=== PATIENT | female | born 2000 | race Hispanic/Latino ===

== ENCOUNTER 2020-09-10 00:48 | Observation (INO) | payer MEDICAID, OTHER ==
[2020-09-10 00:58] VITALS: BMI 31.1
[2020-09-10] MEDS ORDERED: hydrALAZINE 20 MG/ML VIAL SLOW IVP PRN (01:24)
[2020-09-10] MEDS ORDERED: Promethazine HCl 25 MG/ML VIAL IM PRN (01:24)
[2020-09-10] MEDS ORDERED: Acetaminophen 500 MG TAB PO PRN (01:24)
[2020-09-10] MEDS ORDERED: CEFAZOLIN 2 GM in Premix Bag 1 BAG IVPB SCH (01:45)
[2020-09-10] MEDS: Dextrose 5%-Lactated Ringers 1,000 ML IV SCH ×3 (02:08→19:49)
[2020-09-10 06:32] LABS: #Basophils 0.1 10x3/uL (0.0-0.2); #Monocytes 1.3 10x3/uL (0.0-1.1); #Neutrophils 15.2 10x3/uL (1.5-8.4); %Basophils 0.3 % (0.0-2.0); %Eosinophils 0.1 % (0.0-6.0); %Monocytes 6.7 % (0.0-10.0); %Neutrophils 80.3 % (40.0-75.0); Hemoglobin 11.9 g/dL (12.0-15.5); Mean Corpuscular HGB CONC 34.3 g/dL (32.0-36.0); Mean Corpuscular Hemoglobin 28.7 pg (27.0-33.0); Mean Corpuscular Volume 83.8 fl (81.6-98.3); Mean Platelet Volume 9.2 fl (7.4-10.4); Platelet Count 337 10x3/uL (150-450); RBC Distribution Width 12.9 % (11.5-14.5); Red Blood Cell (RBC) Count 4.14 10x6/uL (3.90-5.03); White Blood Cell (WBC) Count 18.9 10x3/uL (3.5-10.5)
[2020-09-10 06:35] LABS: ALT (SGPT) 20 U/L (8-55); AST (SGOT) 18 U/L (5-34); Albumin 4.3 g/dL (3.5-5.0); Alkaline Phosphatase 100 U/L (40-100); Anion Gap 12 mmol/L (10-20); BUN (Urea Nitrogen) 6 mg/dL (7.0-18.7); Bilirubin, Total 0.7 mg/dL (0.2-1.2); Calc. Creatinine Clearance 171 mL/min (70-130); Calcium 8.6 mg/dL (7.8-10.44); Carbon Dioxide 22 mmol/L (22-29); Chloride 107 mmol/L (98-107); Globulin 2.6 g/dL (2.4-3.5); Glucose 123 mg/dL (70-105); Potassium 3.4 mmol/L (3.5-5.1); Protein, Total 6.9 g/dL (6.0-8.3); Sodium 138 mmol/L (136-145)
[2020-09-10] MEDS: CEFAZOLIN 1 GM in Sodium Chloride 0.9% 100 ML IVPB SCH ×2 (08:43→15:41)
[2020-09-10] MEDS: Ondansetron PF 4 MG/2 ML Vial IVP PRN ×2 (13:12→23:09)
[2020-09-10 16:56] LABS: SARS-CoV-2 PCR by NAA Not Detected (NotDetected)
[2020-09-10] MEDS ORDERED: pyridOXINE 50 MG (B6) TAB PO SCH (17:30)
[2020-09-10] MEDS ORDERED: Metoclopramide HCl 10 MG TAB PO SCH (17:30)
[2020-09-10] MEDS ORDERED: Doxylamine 25 MG TAB PO SCH (17:30)
[2020-09-10] MEDS: Metoclopramide HCl 10 MG/2 ML VIAL IVP SCH (19:50)
[2020-09-10] MEDS: Doxylamine 25 MG TAB PO SCH (20:58)
[2020-09-10] MEDS: pyridOXINE 50 MG (B6) TAB PO SCH (21:00)
[2020-09-11] MEDS: CEFAZOLIN 1 GM in Sodium Chloride 0.9% 100 ML IVPB SCH ×3 (00:16→17:06)
[2020-09-11] MEDS: Metoclopramide HCl 10 MG/2 ML VIAL IVP SCH ×4 (02:03→20:03)
[2020-09-11] MEDS: Dextrose 5%-Lactated Ringers 1,000 ML IV SCH ×3 (04:16→13:49)
[2020-09-11] MEDS: Doxylamine 25 MG TAB PO SCH ×2 (08:16→21:09)
[2020-09-11] MEDS: pyridOXINE 50 MG (B6) TAB PO SCH ×3 (08:16→21:09)
[2020-09-11 19:37] VITALS: BP 99/58; TEMP 99.2
== END 2020-09-11 21:25 | disposition home or self-care (01) ==
LOC: CSHPP 00:48
PROVIDERS: ADMIT Obstetrics & Gynecology; ATTEND Obstetrics & Gynecology
DX: O21.1 Hyperemesis gravidarum with metabolic disturbance (principal); O23.41 Unspecified infection of urinary tract in pregnancy, first trimester; Z3A.01 Less than 8 weeks gestation of pregnancy; Z20.822 Contact with and (suspected) exposure to COVID-19
CPT/HCPCS: 36415; 80053; 85025; 87635; 96361; 96365; 96366; 96375; 96376; G0378; J0690; J2405; J2765; J3490; U0003; U0005

== ENCOUNTER 2020-09-21 18:24 | Observation (INO) | payer MEDICAID, OTHER, SELFPAY ==
[2020-09-21] MEDS ORDERED: Ondansetron PF 4 MG/2 ML Vial ONE (19:32)
[2020-09-21] MEDS ORDERED: Promethazine HCl 25 MG/ML VIAL ONE (19:33)
[2020-09-21 19:39] LABS: #Basophils 0.1 10x3/uL (0.0-0.2); #Monocytes 1.8 10x3/uL (0.0-1.1); #Neutrophils 18.6 10x3/uL (1.5-8.4); %Basophils 0.3 % (0.0-2.0); %Lymphocytes 8.9 % (18.0-47.0); %Monocytes 8.1 % (0.0-10.0); %Neutrophils 82.1 % (40.0-75.0); Hemoglobin 15.3 g/dL (12.0-15.5); Mean Corpuscular HGB CONC 36.2 g/dL (32.0-36.0); Mean Corpuscular Hemoglobin 28.5 pg (27.0-33.0); Mean Corpuscular Volume 78.8 fl (81.6-98.3); Mean Platelet Volume 9.2 fl (7.4-10.4); Platelet Count 440 10x3/uL (150-450); RBC Distribution Width 12.2 % (11.5-14.5); Red Blood Cell (RBC) Count 5.37 10x6/uL (3.90-5.03); White Blood Cell (WBC) Count 22.6 10x3/uL (3.5-10.5)
[2020-09-21 19:57] LABS: ALT (SGPT) 172 U/L (8-55); AST (SGOT) 80 U/L (5-34); Albumin 5.4 g/dL (3.5-5.0); Alkaline Phosphatase 135 U/L (40-100); Anion Gap 20 mmol/L (10-20); BUN (Urea Nitrogen) 8 mg/dL (7.0-18.7); Bilirubin, Total 2.5 mg/dL (0.2-1.2); Calc. Creatinine Clearance 0 mL/min (70-130); Calcium 10.3 mg/dL (7.8-10.44); Carbon Dioxide 27 mmol/L (22-29); Chloride 85 mmol/L (98-107); Globulin 3.5 g/dL (2.4-3.5); Glucose 90 mg/dL (70-105); Protein, Total 8.9 g/dL (6.0-8.3); Sodium 130 mmol/L (136-145)
[2020-09-21 20:09] LABS: Potassium 2.4 mmol/L (3.5-5.1)
[2020-09-21] MEDS ORDERED: Dexamethasone 10 MG/ML VIAL ONE (20:35)
[2020-09-21] MEDS ORDERED: Potassium Chloride 20 MEQ TAB ONE (20:35)
[2020-09-21 20:39] LABS: Bilirubin Neg (Negative); Blood, Urine 50 (Negative); Clarity Clear (Clear); Glucose, Urine (Dipstick) Normal (Negative); Ketone, Urine 150 mg/dL (Negative); Leukocyte Negative (Negative); Nitrite Negative (Negative); Protein, Urine (Dipstick) 30 mg/dl (Neg-Trace)
[2020-09-21 20:48] LABS: Amphetamine Not Detected (NotDetected); Barbiturates Screen Not Detected (NotDetected); Benzodiazepine Screen Not Detected (NotDetected); Cocaine Metabolite Screen Not Detected (NotDetected); Methadone Not Detected (NotDetected); Methamphetamine Not Detected (NotDetected); Opiate Screen Not Detected (NotDetected); Oxycodone Screen Not Detected (NotDetected); Phencyclidine (PCP) Not Detected (NotDetected); THC/Cannabinoid Screen Not Detected (NotDetected); Tricyclic Screen Not Detected (NotDetected)
[2020-09-21 20:53] LABS: RBC/HPF 0-3 HPF (0-3)
[2020-09-21 20:54] LABS: Bacteria/HPF 3+ HPF (None Seen); Mucous/LPF 4+ LPF (<2+)
[2020-09-21] MEDS ORDERED: Mirtazapine 15 MG TAB PO SCH (21:00)
[2020-09-21] MEDS ORDERED: Ondansetron PF 4 MG/2 ML Vial IVP PRN (21:37)
[2020-09-21] MEDS ORDERED: Sodium Chloride 0.9% 1,000 ML IV SCH (21:37)
[2020-09-21] MEDS ORDERED: NS 0.9% w/ 20 MEQ KCL 1,000 ML IV SCH (23:00)
[2020-09-21] MEDS: Metoclopramide HCl 10 MG/2 ML VIAL IVP SCH (23:09)
[2020-09-22 06:29] LABS: Anion Gap 12 mmol/L (10-20); Globulin 2.7 g/dL (2.4-3.5)
[2020-09-22] MEDS: Metoclopramide HCl 10 MG/2 ML VIAL IVP SCH (06:31)
[2020-09-22 06:57] LABS: ALT (SGPT) 123 U/L (8-55); AST (SGOT) 49 U/L (5-34); Albumin 4.1 g/dL (3.5-5.0); Alkaline Phosphatase 96 U/L (40-100); BUN (Urea Nitrogen) 5 mg/dL (7.0-18.7); Bilirubin, Total 1.8 mg/dL (0.2-1.2); Calc. Creatinine Clearance 152 mL/min (70-130); Calcium 8.6 mg/dL (7.8-10.44); Carbon Dioxide 27 mmol/L (22-29); Chloride 100 mmol/L (98-107); Glucose 105 mg/dL (70-105); Potassium 3.5 mmol/L (3.5-5.1); Protein, Total 6.8 g/dL (6.0-8.3); Sodium 135 mmol/L (136-145)
[2020-09-22] MEDS ORDERED: Famotidine/PF 20 mg/2ml Vial SLOW IVP SCH (09:00)
[2020-09-22 09:21] VITALS: BMI 25.8
[2020-09-22 11:14] VITALS: BP 117/73; TEMP 98.9
[2020-09-22 13:36] LABS: SARS-CoV-2 PCR by NAA Not Detected (NotDetected)
== END 2020-09-22 13:25 | disposition home or self-care (01) ==
LOC: CSHERS 18:24 → CSHPP 21:22 → OBSVTOIN 21:22 → INTOOBSV 21:22
PROVIDERS: ADMIT Obstetrics & Gynecology; ATTEND Obstetrics & Gynecology
DX: O21.1 Hyperemesis gravidarum with metabolic disturbance (principal); O23.41 Unspecified infection of urinary tract in pregnancy, first trimester; Z3A.08 8 weeks gestation of pregnancy; Z79.2 Long term (current) use of antibiotics; Z79.899 Other long term (current) drug therapy; Z20.822 Contact with and (suspected) exposure to COVID-19
CPT/HCPCS: 36415; 80053; 80306; 81003; 81015; 85025; 87635; 96374; 96375; 96376; G0378; J1100; J2405; J2550; J2765; J3480; S0028; U0003; U0005

== ENCOUNTER 2020-10-12 21:26 | Observation (INO) | payer MEDICAID, OTHER ==
[2020-10-12 22:18] LABS: #Basophils 0.1 10x3/uL (0.0-0.2); #Monocytes 0.7 10x3/uL (0.0-1.1); #Neutrophils 12.1 10x3/uL (1.5-8.4); %Basophils 0.4 % (0.0-2.0); %Eosinophils 0.1 % (0.0-6.0); %Monocytes 4.7 % (0.0-10.0); %Neutrophils 86.3 % (40.0-75.0); Hemoglobin 13.7 g/dL (12.0-15.5); Mean Corpuscular HGB CONC 36.2 g/dL (32.0-36.0); Mean Corpuscular Hemoglobin 29.1 pg (27.0-33.0); Mean Corpuscular Volume 80.3 fl (81.6-98.3); Mean Platelet Volume 9.1 fl (7.4-10.4); Platelet Count 385 10x3/uL (150-450); RBC Distribution Width 13.5 % (11.5-14.5); Red Blood Cell (RBC) Count 4.71 10x6/uL (3.90-5.03)
[2020-10-12] MEDS ORDERED: Ondansetron PF 4 MG/2 ML Vial ONE (22:24)
[2020-10-12 22:25] LABS: BHCG - Serum POSITIVE (NEGATIVE); Pregs Control Background? CLEAR/WHITE (CLR/WHITE); Pregs Control Bar Appear? YES (CONTROL BAR)
[2020-10-12 22:27] LABS: Bilirubin 1+ (Negative); Blood, Urine 25 (Negative); Glucose, Urine (Dipstick) Normal (Negative); Ketone, Urine 150 mg/dL (Negative); Leukocyte 25 (Negative); Nitrite Negative (Negative); Protein, Urine (Dipstick) 30 mg/dl (Neg-Trace)
[2020-10-12 22:29] LABS: Clarity Clear (Clear)
[2020-10-12 22:34] LABS: ALT (SGPT) 30 U/L (8-55); AST (SGOT) 26 U/L (5-34); Alkaline Phosphatase 108 U/L (40-100); Anion Gap 20 mmol/L (10-20); BUN (Urea Nitrogen) 6 mg/dL (7.0-18.7); Bilirubin, Total 1.4 mg/dL (0.2-1.2); Calc. Creatinine Clearance 0 mL/min (70-130); Calcium 10.3 mg/dL (7.8-10.44); Carbon Dioxide 16 mmol/L (22-29); Chloride 102 mmol/L (98-107); Globulin 3.4 g/dL (2.4-3.5); Glucose 95 mg/dL (70-105); Protein, Total 8.4 g/dL (6.0-8.3); Sodium 135 mmol/L (136-145)
[2020-10-12 22:39] LABS: Bacteria/HPF 3+ HPF (None Seen); Mucous/LPF 3+ LPF (<2+); RBC/HPF 0-3 HPF (0-3)
[2020-10-12] MEDS ORDERED: Metoclopramide HCl 10 MG/2 ML VIAL ONE (23:17)
[2020-10-12] MEDS ORDERED: diphenhydrAMINE 50 MG/ML VIAL ONE (23:17)
[2020-10-13] MEDS ORDERED: D5 0.9% NS w/ 20 mEq KCl 1,000 ML IV ONE (00:26)
[2020-10-13] MEDS ORDERED: Acetaminophen 325 MG TAB PO PRN (01:45)
[2020-10-13] MEDS ORDERED: Ondansetron PF 4 MG/2 ML Vial IVP PRN (01:45)
[2020-10-13] MEDS ORDERED: Ondansetron ODT 4 MG TAB SL PRN (01:45)
[2020-10-13] MEDS ORDERED: Sodium Chloride 0.9% 1,000 ML IV SCH (01:45)
[2020-10-13] MEDS ORDERED: Acetaminophen 500 MG TAB PO PRN (02:53)
[2020-10-13] MEDS ORDERED: Promethazine HCl 25 MG/ML VIAL IM PRN ×2 (02:53→03:13)
[2020-10-13] MEDS ORDERED: Zolpidem Tartrate 5 MG TAB PO PRN (02:53)
[2020-10-13] MEDS ORDERED: hydrALAZINE 20 MG/ML VIAL SLOW IVP PRN (02:53)
[2020-10-13] MEDS ORDERED: Metoclopramide HCl 10 MG/2 ML VIAL IVP PRN (02:56)
[2020-10-13] MEDS: diphenhydrAMINE 25 MG in Sodium Chloride 0.9% 50 ML IVPB SCH ×3 (03:51→15:11)
[2020-10-13] MEDS: Metoclopramide HCl 10 MG/2 ML VIAL IVP SCH ×4 (03:53→20:34)
[2020-10-13] MEDS: CEFAZOLIN 1 GM in Sodium Chloride 0.9% 100 ML IVPB SCH ×3 (04:46→20:33)
[2020-10-13] MEDS: D5 1/2 NS w/20 mEq KCL 1,000 ML IV SCH ×3 (07:26→20:33)
[2020-10-13 11:36] VITALS: BMI 28.3
[2020-10-13 14:23] LABS: SARS-CoV-2 PCR by NAA Not Detected (NotDetected)
[2020-10-14] MEDS: diphenhydrAMINE 50 MG/ML VIAL IVP SCH ×3 (00:23→15:07)
[2020-10-14] MEDS: CEFAZOLIN 1 GM in Sodium Chloride 0.9% 100 ML IVPB SCH ×3 (03:48→20:27)
[2020-10-14] MEDS: Metoclopramide HCl 10 MG/2 ML VIAL IVP SCH ×2 (03:48→08:16)
[2020-10-14] MEDS: D5 1/2 NS w/20 mEq KCL 1,000 ML IV SCH ×3 (03:56→20:42)
[2020-10-14] MEDS: diphenhydrAMINE 25 MG in Sodium Chloride 0.9% 50 ML IVPB SCH (05:52)
[2020-10-14 08:21] LABS: Anion Gap 12 mmol/L (10-20)
[2020-10-14 08:27] LABS: BUN (Urea Nitrogen) Less than 4 mg/dL (7.0-18.7); Calc. Creatinine Clearance 179 mL/min (70-130); Calcium 8.3 mg/dL (7.8-10.44); Carbon Dioxide 19 mmol/L (22-29); Chloride 108 mmol/L (98-107); Glucose 96 mg/dL (70-105); Potassium 3.5 mmol/L (3.5-5.1); Sodium 135 mmol/L (136-145)
[2020-10-14] MEDS: pyridOXINE 50 MG (B6) TAB PO SCH ×3 (15:13→21:16)
[2020-10-14] MEDS: Doxylamine 25 MG TAB PO SCH ×3 (15:14→21:15)
[2020-10-14] MEDS: Metoclopramide HCl 10 MG TAB PO SCH ×2 (17:01→21:15)
[2020-10-14] MEDS ORDERED: Metoclopramide HCl 10 MG/2 ML VIAL IVP PRN (20:12)
[2020-10-14] MEDS: Ondansetron PF 4 MG/2 ML Vial IVP PRN (20:27)
[2020-10-15] MEDS: pyridOXINE 50 MG (B6) TAB PO SCH ×2 (01:54→08:04)
[2020-10-15] MEDS: Ondansetron ODT 4 MG TAB SL SCH ×3 (01:56→12:08)
[2020-10-15] MEDS: Doxylamine 25 MG TAB PO SCH ×2 (01:56→08:05)
[2020-10-15] MEDS: D5 1/2 NS w/20 mEq KCL 1,000 ML IV SCH (02:00)
[2020-10-15] MEDS: CEFAZOLIN 1 GM in Sodium Chloride 0.9% 100 ML IVPB SCH (04:24)
[2020-10-15] MEDS: Metoclopramide HCl 10 MG TAB PO SCH ×2 (08:04→12:08)
[2020-10-15] MEDS ORDERED: Cephalexin 500 MG CAP PO SCH (09:00)
[2020-10-15] MEDS: Ondansetron PF 4 MG/2 ML Vial IVP PRN (10:37)
[2020-10-15 12:12] VITALS: BP 115/66; TEMP 98.3
== END 2020-10-15 14:33 | disposition home or self-care (01) ==
LOC: CSHERS 21:26 → CSHANTE 21:52 → UNDOADMOB 10-13 01:40 → CSHANTE 10-13 01:40 → UNDODISOB 10-15 14:33
PROVIDERS: ADMIT Obstetrics & Gynecology; ATTEND Obstetrics & Gynecology
DX: O21.0 Mild hyperemesis gravidarum (principal); O23.41 Unspecified infection of urinary tract in pregnancy, first trimester; Z3A.11 11 weeks gestation of pregnancy; Z20.822 Contact with and (suspected) exposure to COVID-19
CPT/HCPCS: 36415; 80048; 80053; 81003; 81015; 84702; 84703; 85025; 87635; 96365; 96366; 96367; 96375; 96376; G0378; J0690; J1200; J2405; J2765; J3480; J3490; Q0162; U0003; U0005

== ENCOUNTER 2021-04-20 10:13 | Day surgery (SDC) | payer OTHER ==
[2021-04-20] MEDS ORDERED: hydrALAZINE 20 MG/ML VIAL SLOW IVP PRN (13:23)
[2021-04-20] MEDS ORDERED: Promethazine HCl 25 MG/ML VIAL IM PRN (13:28)
[2021-04-20] MEDS ORDERED: Morphine 10 MG/ML VIAL IM SCH (14:00)
== END 2021-04-20 14:35 | disposition home or self-care (01) ==
LOC: CSHLD/OP 10:13
PROVIDERS: ATTEND Obstetrics & Gynecology
DX: O47.1 False labor at or after 37 completed weeks of gestation (principal); Z3A.38 38 weeks gestation of pregnancy
CPT/HCPCS: J2270; J2550

== ENCOUNTER 2021-04-21 22:24 | Inpatient (IN) | payer OTHER ==
[~2021-04-21 22:24] MED LIST: Bupivacaine 0.25% HCL 30 ML VIAL ONE
[2021-04-21] MEDS ORDERED: Misoprostol 200 MCG TAB PR PRN (23:23)
[2021-04-21] MEDS ORDERED: HYDROcodone/Acetaminophen 5/325 mg Tablet PO PRN ×2 (23:23)
[2021-04-21] MEDS ORDERED: Butorphanol Tartrate 1 MG/ML VIAL SLOW IVP PRN (23:23)
[2021-04-21] MEDS ORDERED: hydrALAZINE 20 MG/ML VIAL SLOW IVP PRN (23:23)
[2021-04-21] MEDS ORDERED: Ibuprofen 800 MG TAB PO PRN (23:23)
[2021-04-21] MEDS ORDERED: Lidocaine 1% (PF) 30 ML VIAL SC PRN (23:23)
[2021-04-21] MEDS ORDERED: Methylergonovine 0.2 MG/ML VIAL IM PRN (23:23)
[2021-04-21] MEDS ORDERED: Ondansetron PF 4 MG/2 ML Vial IVP PRN (23:23)
[2021-04-21 23:30] VITALS: BMI 32.2
[2021-04-21] MEDS ORDERED: NS w/ Oxytocin 30 units 500 ML IV SCH (23:30)
[2021-04-21 23:35] LABS: Hemoglobin 12.3 g/dL (12.0-15.5); Mean Corpuscular HGB CONC 32.7 g/dL (32.0-36.0); Mean Corpuscular Hemoglobin 25.9 pg (27.0-33.0); Mean Corpuscular Volume 79.2 fl (81.6-98.3); Mean Platelet Volume 10.7 fl (7.4-10.4); Platelet Count 319 10x3/uL (150-450); RBC Distribution Width 15.1 % (11.5-14.5); Red Blood Cell (RBC) Count 4.75 10x6/uL (3.90-5.03); White Blood Cell (WBC) Count 13.7 10x3/uL (3.5-10.5)
[2021-04-22] MEDS ORDERED: Fentanyl 2 mcg/Bup 0.1% Cadd 100 ML ONE (00:09)
[2021-04-22 00:16] LABS: Syphilis Antibody Nonreactive (Nonreactive); Syphilis Antibody Index 0.06 S/CO (<1.00 Non-Reactive)
[2021-04-22] MEDS: Lactated Ringer's 1,000 ML IV SCH ×3 (00:30→08:46)
[2021-04-22] MEDS: Fentanyl 2 mcg/Bupivacaine 0.1% Cassette 100 ML EPIDURAL SCH ×2 (00:30→07:55)
[2021-04-22] MEDS ORDERED: diphenhydrAMINE 50 MG/ML VIAL IVP PRN (00:32)
[2021-04-22] MEDS ORDERED: Lactated Ringer's 500 ML IV PRN (00:32)
[2021-04-22] MEDS ORDERED: Naloxone HCl 0.4 mg/ml Vial IVP PRN ×2 (00:32)
[2021-04-22] MEDS ORDERED: ePHEDrine Sulfate 50 MG/10 ML VIAL SLOW IVP PRN (00:32)
[2021-04-22] MEDS ORDERED: Ondansetron PF 4 MG/2 ML Vial IVP PRN ×2 (00:32→15:07)
[2021-04-22] MEDS ORDERED: Hydrocerin (Eucerin) Cream 120 gm Jar TOP PRN (00:32)
[2021-04-22] MEDS ORDERED: Acetaminophen 325 MG TAB PO PRN (00:32)
[2021-04-22] MEDS ORDERED: Promethazine HCl 25 MG/ML VIAL IM PRN (00:32)
[2021-04-22] MEDS ORDERED: Communication Order-Pharmacy FS SCH (00:45)
[2021-04-22 01:12] LABS: Hep B Surf Ag Non-Reactive S/CO (NonReactive)
[2021-04-22 01:16] LABS: HBSAg Index 0.95 S/CO (0-0.99)
[2021-04-22 03:01] LABS: SARS-CoV-2 NAA Rapid Test Not Detected (NotDetected)
[2021-04-22] MEDS: NS w/ Oxytocin 30 units 500 ML IV SCH ×2 (10:09→13:35)
[2021-04-22] MEDS ORDERED: Milk Of Magnesia 30 ML UDCUP PO PRN (15:07)
[2021-04-22] MEDS ORDERED: HYDROcodone/Acetaminophen 5/325 mg Tablet PO PRN ×2 (15:07)
[2021-04-22] MEDS ORDERED: Boostrix 0.5 ML (Tdap) VIAL IM ONE (15:07)
[2021-04-22] MEDS ORDERED: Misoprostol 200 MCG TAB VAG PRN (15:07)
[2021-04-22] MEDS ORDERED: diphenhydrAMINE 25 MG CAP PO PRN (15:07)
[2021-04-22] MEDS ORDERED: hydrALAZINE 20 MG/ML VIAL SLOW IVP PRN (15:07)
[2021-04-22] MEDS ORDERED: Bisacodyl 10 MG SUPP PR PRN (15:07)
[2021-04-22] MEDS ORDERED: Benzocaine-Menthol 82.5 ML CAN TOP PRN (15:07)
[2021-04-22] MEDS ORDERED: NS w/ Oxytocin 30 units 500 ML IV SCH (15:07)
[2021-04-22] MEDS ORDERED: Lanolin Ointment 7 GM TUBE TOP PRN (15:07)
[2021-04-22] MEDS ORDERED: Ibuprofen 800 MG TAB PO SCH (16:00)
[2021-04-22] MEDS: Ferrous Sulfate 325 MG TAB PO SCH (18:02)
[2021-04-22] MEDS: Ibuprofen 800 MG TAB PO SCH (21:27)
[2021-04-22] MEDS: Docusate Calcium (SURFAK) 240 MG CAP PO SCH (21:28)
[2021-04-23] MEDS: Ibuprofen 800 MG TAB PO SCH ×3 (06:26→21:26)
[2021-04-23] MEDS: Prenatal Vitamin 1 TAB PO SCH (08:02)
[2021-04-23] MEDS: Docusate Calcium (SURFAK) 240 MG CAP PO SCH ×2 (08:02→21:26)
[2021-04-23] MEDS: Ferrous Sulfate 325 MG TAB PO SCH ×2 (08:03→15:16)
[2021-04-24] MEDS: Ibuprofen 800 MG TAB PO SCH ×2 (05:22→13:26)
[2021-04-24 07:53] VITALS: BP 103/56; TEMP 98.2
[2021-04-24] MEDS: Ferrous Sulfate 325 MG TAB PO SCH (08:56)
[2021-04-24] MEDS: Docusate Calcium (SURFAK) 240 MG CAP PO SCH (08:57)
[2021-04-24] MEDS: Prenatal Vitamin 1 TAB PO SCH (08:57)
== END 2021-04-24 15:20 | disposition home or self-care (01) | DRG 807 ==
LOC: CSHLD/OP 22:24 → CSHLD 23:04 → CSHPP 04-22 15:33
PROVIDERS: ADMIT Student in an Organized Health Care Education/Training Program; ATTEND Student in an Organized Health Care Education/Training Program
PROC: 10E0XZZ Delivery of Products of Conception, External Approach (ICD-10-PCS; principal; 2021-04-21)
PROC: 0HQ9XZZ Repair Perineum Skin, External Approach (ICD-10-PCS; 2021-04-21)
DX: O77.0 Labor and delivery complicated by meconium in amniotic fluid (principal); Z37.0 Single live birth; Z20.822 Contact with and (suspected) exposure to COVID-19; Z3A.39 39 weeks gestation of pregnancy; O70.0 First degree perineal laceration during delivery
CPT/HCPCS: 36415; 51702; 85027; 86780; 86850; 86900; 86901; 87340; 99285; J2405; J2590; J7120; U0002

== ENCOUNTER 2023-04-25 00:25 | Emergency (ER) | payer BC ==
[2023-04-25] MEDS ORDERED: Ondansetron PF 4 MG/2 ML Vial ONE (01:06)
[2023-04-25 01:28] LABS: #Monocytes 0.6 10x3/uL (0.0-1.1); #Neutrophils 13.3 10x3/uL (1.5-8.4); %Basophils 0.3 % (0.0-2.0); %Eosinophils 0.1 % (0.0-6.0); %Lymphocytes 8.9 % (18.0-47.0); %Monocytes 4.1 % (0.0-10.0); Hematocrit 37.8 % (34.9-44.5); Hemoglobin 13.5 g/dL (12.0-15.5); Mean Corpuscular HGB CONC 35.7 g/dL (32.0-36.0); Mean Corpuscular Hemoglobin 28.8 pg (27.0-33.0); Mean Corpuscular Volume 80.6 fl (81.6-98.3); Mean Platelet Volume 9.5 fl (7.4-10.4); Platelet Count 412 10x3/uL (150-450); RBC Distribution Width 12.9 % (11.5-14.5); Red Blood Cell (RBC) Count 4.69 10x6/uL (3.90-5.03); White Blood Cell (WBC) Count 15.5 10x3/uL (3.5-10.5)
[2023-04-25 01:35] LABS: BHCG - Serum POSITIVE (NEGATIVE); Pregs Control Background? CLEAR/WHITE (CLR/WHITE); Pregs Control Bar Appear? YES (CONTROL BAR)
[2023-04-25 01:43] LABS: ALT (SGPT) 20 U/L (8-55); AST (SGOT) 25 U/L (5-34); Albumin 4.8 g/dL (3.5-5.0); Alkaline Phosphatase 98 U/L (40-110); Anion Gap 21 mmol/L (10-20); BUN (Urea Nitrogen) 8 mg/dL (7.0-18.7); Bilirubin, Total 0.7 mg/dL (0.2-1.2); Calc. Creatinine Clearance 0 mL/min (70-130); Calcium 10.3 mg/dL (7.8-10.44); Carbon Dioxide 15 mmol/L (22-29); Chloride 106 mmol/L (98-107); Estimated GFR 130; Globulin 3.2 g/dL (2.4-3.5); Glucose 138 mg/dL (70-105); Lipase 11 U/L (8-78); Potassium 3.1 mmol/L (3.5-5.1); Sodium 139 mmol/L (136-145)
[2023-04-25 02:48] LABS: SARS-CoV-2 NAA Rapid Test Not Detected (NotDetected)
[2023-04-25] MEDS ORDERED: Promethazine HCl 12.5 MG in Sodium Chloride 0.9% 50 ML IVPB SCH (03:00)
[2023-04-25 05:20] LABS: Bilirubin Neg (Negative); Blood, Urine 10 (Negative); Clarity Clear (Clear); Glucose, Urine (Dipstick) >=1000 mg/dL (Negative); Ketone, Urine 150 mg/dL (Negative); Leukocyte Negative (Negative); Nitrite Negative (Negative); Protein, Urine (Dipstick) Negative (Neg-Trace)
[2023-04-25 05:30] LABS: Bacteria/HPF 1+ HPF (None Seen); CAUTI Indications for Culture < 2yrs of age; Squamous Epithelial 0-3 HPF (0-3); WBC/HPF 0-3 HPF (0-3)
[2023-04-25 05:31] LABS: Urine Culture Reflex Yes Yes
== END 2023-04-25 05:40 | disposition home or self-care (01) ==
LOC: CSHERS 00:25
DX: O21.9 Vomiting of pregnancy, unspecified (principal); Z3A.12 12 weeks gestation of pregnancy; Z20.822 Contact with and (suspected) exposure to COVID-19
CPT/HCPCS: 80053; 81001; 82010; 83690; 84703; 85025; 87086; 96374; 96375; J2405; J2550

== ENCOUNTER 2023-04-26 10:31 | Inpatient (IN) | payer BC, MEDICAID ==
[2023-04-26] MEDS ORDERED: Ondansetron PF 4 MG/2 ML Vial ONE (12:09)
[2023-04-26] MEDS ORDERED: Famotidine/PF 20 mg/2ml Vial ONE (12:10)
[2023-04-26 12:50] LABS: #Basophils 0.1 10x3/uL (0.0-0.2); #Monocytes 0.5 10x3/uL (0.0-1.1); #Neutrophils 14.8 10x3/uL (1.5-8.4); %Basophils 0.4 % (0.0-2.0); %Lymphocytes 7.2 % (18.0-47.0); %Neutrophils 88.3 % (40.0-75.0); Hematocrit 40.2 % (34.9-44.5); Hemoglobin 13.8 g/dL (12.0-15.5); Mean Corpuscular HGB CONC 34.3 g/dL (32.0-36.0); Mean Corpuscular Hemoglobin 28.5 pg (27.0-33.0); Mean Corpuscular Volume 82.9 fl (81.6-98.3); Mean Platelet Volume 9.8 fl (7.4-10.4); Platelet Count 439 10x3/uL (150-450); RBC Distribution Width 13.5 % (11.5-14.5); Red Blood Cell (RBC) Count 4.85 10x6/uL (3.90-5.03); White Blood Cell (WBC) Count 16.7 10x3/uL (3.5-10.5)
[2023-04-26] MEDS ORDERED: Promethazine HCl 12.5 MG in Sodium Chloride 0.9% 50 ML IVPB SCH (13:00)
[2023-04-26 13:05] LABS: ALT (SGPT) 55 U/L (8-55); AST (SGOT) 63 U/L (5-34); Albumin 5.3 g/dL (3.5-5.0); Alkaline Phosphatase 112 U/L (40-110); Anion Gap 21 mmol/L (10-20); BUN (Urea Nitrogen) 7 mg/dL (7.0-18.7); Calc. Creatinine Clearance 0 mL/min (70-130); Calcium 10.5 mg/dL (7.8-10.44); Carbon Dioxide 17 mmol/L (22-29); Chloride 106 mmol/L (98-107); Estimated GFR 127; Globulin 4.1 g/dL (2.4-3.5); Glucose 123 mg/dL (70-105); Potassium 3.1 mmol/L (3.5-5.1); Protein, Total 9.4 g/dL (6.0-8.3); Sodium 141 mmol/L (136-145)
[2023-04-26 13:26] LABS: Bilirubin Neg (Negative); Blood, Urine 25 (Negative); Clarity Clear (Clear); Glucose, Urine (Dipstick) Normal (Negative); Ketone, Urine 150 mg/dL (Negative); Leukocyte 25 (Negative); Nitrite Negative (Negative); Protein, Urine (Dipstick) 30 mg/dl (Neg-Trace); Specific Gravity, Urine 1.025 (1.005-1.030)
[2023-04-26] MEDS ORDERED: Ondansetron ODT 4 MG TAB PO PRN (13:34)
[2023-04-26] MEDS ORDERED: Acetaminophen 325 MG TAB PO PRN (13:34)
[2023-04-26] MEDS ORDERED: Potassium Chloride 20 MEQ TAB ONE (13:41)
[2023-04-26] MEDS ORDERED: Potassium Chloride 20 MEQ/100 ML PREMIX BAG ONE (13:42)
[2023-04-26 13:57] LABS: CAUTI Indications for Culture Dysuria,urgency,freq
[2023-04-26 13:58] LABS: Bacteria/HPF 2+ HPF (None Seen)
[2023-04-26 13:59] LABS: Mucous/LPF 4+ LPF (<2+)
[2023-04-26 14:00] LABS: Urine Culture Reflex No No
[2023-04-26] MEDS: Lactated Ringer's 1,000 ML IV SCH (15:46)
[2023-04-26 15:52] VITALS: BMI 32.2
[2023-04-26] MEDS ORDERED: Promethazine 25 MG TAB PO PRN (16:13)
[2023-04-26] MEDS: Famotidine 20 MG TAB PO SCH (20:25)
[2023-04-26] MEDS: Ondansetron PF 4 MG/2 ML Vial IVP PRN (20:25)
[2023-04-26] MEDS ORDERED: guaiFENesin ER 600 MG TAB PO SCH (23:45)
[2023-04-27] MEDS: Promethazine HCl 12.5 MG in Sodium Chloride 0.9% 50 ML IVPB PRN ×2 (00:15→08:16)
[2023-04-27] MEDS: Lactated Ringer's 1,000 ML IV SCH ×3 (00:16→18:37)
[2023-04-27] MEDS: Ondansetron PF 4 MG/2 ML Vial IVP PRN (07:32)
[2023-04-27 08:35] LABS: ALT (SGPT) 50 U/L (8-55); AST (SGOT) 60 U/L (5-34); Albumin 3.7 g/dL (3.5-5.0); Alkaline Phosphatase 77 U/L (40-110); Anion Gap 14 mmol/L (10-20); BUN (Urea Nitrogen) 4 mg/dL (7.0-18.7); Bilirubin, Total 1.1 mg/dL (0.2-1.2); Calc. Creatinine Clearance 197 mL/min (70-130); Calcium 8.6 mg/dL (7.8-10.44); Carbon Dioxide 19 mmol/L (22-29); Chloride 112 mmol/L (98-107); Estimated GFR 134; Globulin 2.6 g/dL (2.4-3.5); Glucose 93 mg/dL (70-105); Potassium 3.5 mmol/L (3.5-5.1); Protein, Total 6.3 g/dL (6.0-8.3); Sodium 141 mmol/L (136-145)
[2023-04-27 08:41] LABS: #Basophils 0.1 10x3/uL (0.0-0.2); #Eosinphils 0.1 10x3/uL (0.0-0.5); #Neutrophils 7.7 10x3/uL (1.5-8.4); %Basophils 0.6 % (0.0-2.0); %Eosinophils 0.5 % (0.0-6.0); %Lymphocytes 21.9 % (18.0-47.0); %Monocytes 8.5 % (0.0-10.0); %Neutrophils 67.7 % (40.0-75.0); Hematocrit 32.1 % (34.9-44.5); Hemoglobin 10.9 g/dL (12.0-15.5); Mean Corpuscular Hemoglobin 29.1 pg (27.0-33.0); Mean Corpuscular Volume 85.6 fl (81.6-98.3); Mean Platelet Volume 10.2 fl (7.4-10.4); Platelet Count 303 10x3/uL (150-450); RBC Distribution Width 13.7 % (11.5-14.5); Red Blood Cell (RBC) Count 3.75 10x6/uL (3.90-5.03); White Blood Cell (WBC) Count 11.4 10x3/uL (3.5-10.5)
[2023-04-27] MEDS ORDERED: guaiFENesin ER 600 MG TAB PO SCH (09:00)
[2023-04-27] MEDS: Famotidine 20 MG TAB PO SCH ×2 (09:41→20:21)
[2023-04-27] MEDS: guaiFENesin ER 600 MG TAB PO SCH ×2 (09:41→20:21)
[2023-04-27] MEDS ORDERED: diphenhydrAMINE 50 MG/ML VIAL IVP SCH (10:30)
[2023-04-27] MEDS: Metoclopramide HCl 10 MG/2 ML VIAL IVP SCH ×2 (10:57→22:29)
[2023-04-27] MEDS ORDERED: Ondansetron PF 4 MG/2 ML Vial IVP SCH (15:00)
[2023-04-27] MEDS: Promethazine HCl 25 MG SUPP PR SCH (18:37)
[2023-04-27] MEDS ORDERED: diphenhydrAMINE 50 MG/ML VIAL IVP PRN (22:00)
[2023-04-28] MEDS: Lactated Ringer's 1,000 ML IV SCH ×3 (01:15→22:02)
[2023-04-28] MEDS ORDERED: Ondansetron PF 4 MG/2 ML Vial IVP SCH (03:00)
[2023-04-28] MEDS: Promethazine HCl 25 MG SUPP PR SCH (06:27)
[2023-04-28 07:49] LABS: Anion Gap 15 mmol/L (10-20); BUN (Urea Nitrogen) Less than 4 mg/dL (7.0-18.7); Calc. Creatinine Clearance 222 mL/min (70-130); Calcium 8.5 mg/dL (7.8-10.44); Carbon Dioxide 19 mmol/L (22-29); Chloride 104 mmol/L (98-107); Estimated GFR 138; Glucose 99 mg/dL (70-105); Potassium 2.8 mmol/L (3.5-5.1); Sodium 135 mmol/L (136-145)
[2023-04-28] MEDS ORDERED: Potassium Bicarbonate/Cit Ac 20 MEQ TAB PO SCH (09:00)
[2023-04-28] MEDS: Famotidine 20 MG TAB PO SCH (09:58)
[2023-04-28] MEDS: guaiFENesin ER 600 MG TAB PO SCH ×2 (09:58→21:50)
[2023-04-28] MEDS ORDERED: Metoclopramide HCl 10 MG TAB PO SCH (11:00)
[2023-04-28] MEDS ORDERED: Metoclopramide HCl 10 MG/2 ML VIAL IVP SCH (11:00)
[2023-04-28 14:43] LABS: Anion Gap 15 mmol/L (10-20); BUN (Urea Nitrogen) Less than 4 mg/dL (7.0-18.7); Calc. Creatinine Clearance 217 mL/min (70-130); Calcium 9.1 mg/dL (7.8-10.44); Carbon Dioxide 20 mmol/L (22-29); Chloride 102 mmol/L (98-107); Estimated GFR 137; Glucose 96 mg/dL (70-105); Sodium 134 mmol/L (136-145)
[2023-04-28] MEDS ORDERED: Ondansetron ODT 4 MG TAB PO SCH (15:00)
[2023-04-28] MEDS ORDERED: Potassium Chloride 20 MEQ TAB PO SCH ×2 (15:30→21:00)
[2023-04-28] MEDS ORDERED: Promethazine 25 MG TAB PO SCH (19:00)
[2023-04-28] MEDS: Famotidine/PF 20 mg/2ml Vial SLOW IVP SCH (21:50)
[2023-04-28] MEDS: Metoclopramide HCl 10 MG/2 ML VIAL IVP SCH (21:50)
[2023-04-28] MEDS: Ondansetron PF 4 MG/2 ML Vial IVP SCH (21:51)
[2023-04-29] MEDS: Metoclopramide HCl 10 MG/2 ML VIAL IVP SCH ×3 (06:12→21:28)
[2023-04-29] MEDS: Ondansetron PF 4 MG/2 ML Vial IVP SCH ×3 (06:13→21:28)
[2023-04-29 07:37] LABS: ALT (SGPT) 87 U/L (8-55); AST (SGOT) 64 U/L (5-34); Albumin 4.2 g/dL (3.5-5.0); Alkaline Phosphatase 100 U/L (40-110); Anion Gap 16 mmol/L (10-20); BUN (Urea Nitrogen) Less than 4 mg/dL (7.0-18.7); Bilirubin, Total 0.9 mg/dL (0.2-1.2); Calc. Creatinine Clearance 204 mL/min (70-130); Carbon Dioxide 19 mmol/L (22-29); Chloride 104 mmol/L (98-107); Estimated GFR 135; Globulin 3.1 g/dL (2.4-3.5); Glucose 99 mg/dL (70-105); Potassium 3.1 mmol/L (3.5-5.1); Protein, Total 7.3 g/dL (6.0-8.3); Sodium 136 mmol/L (136-145)
[2023-04-29] MEDS ORDERED: Potassium Chloride 10 MEQ in Premix 1 BAG IVPB SCH (08:30)
[2023-04-29] MEDS ORDERED: Potassium Chloride 20 MEQ TAB PO SCH (09:30)
[2023-04-29] MEDS: Famotidine/PF 20 mg/2ml Vial SLOW IVP SCH ×2 (10:08→21:27)
[2023-04-29] MEDS: guaiFENesin ER 600 MG TAB PO SCH ×2 (10:09→21:28)
[2023-04-29] MEDS ORDERED: Promethazine HCl 25 MG/ML VIAL IVPB PRN (11:09)
[2023-04-29] MEDS: Promethazine HCl 12.5 MG in Sodium Chloride 0.9% 50 ML IVPB PRN (11:57)
[2023-04-29] MEDS: Potassium Chloride 20 MEQ in Premix 1 BAG IVPB SCH ×2 (14:40→18:23)
[2023-04-29] MEDS ORDERED: Potassium Chloride 20 MEQ in Premix 1 BAG IVPB SCH (18:30)
[2023-04-30 01:40] LABS: Anion Gap 13 mmol/L (10-20); BUN (Urea Nitrogen) Less than 4 mg/dL (7.0-18.7); Calc. Creatinine Clearance 227 mL/min (70-130); Calcium 8.6 mg/dL (7.8-10.44); Carbon Dioxide 20 mmol/L (22-29); Chloride 106 mmol/L (98-107); Estimated GFR 139; Glucose 96 mg/dL (70-105); Potassium 3.3 mmol/L (3.5-5.1); Sodium 136 mmol/L (136-145)
[2023-04-30] MEDS: Promethazine HCl 12.5 MG in Sodium Chloride 0.9% 50 ML IVPB PRN (03:02)
[2023-04-30 03:41] LABS: Magnesium 1.8 mg/dL (1.6-2.6)
[2023-04-30] MEDS: Ondansetron PF 4 MG/2 ML Vial IVP SCH ×3 (06:03→22:09)
[2023-04-30] MEDS: Metoclopramide HCl 10 MG/2 ML VIAL IVP SCH ×3 (06:03→22:59)
[2023-04-30] MEDS ORDERED: Potassium Chloride 20 MEQ TAB PO SCH ×3 (08:00→12:00)
[2023-04-30] MEDS ORDERED: Potassium Chloride 20 MEQ in Premix 1 BAG IVPB SCH (08:00)
[2023-04-30] MEDS: guaiFENesin ER 600 MG TAB PO SCH ×2 (08:39→20:17)
[2023-04-30] MEDS: Famotidine/PF 20 mg/2ml Vial SLOW IVP SCH ×2 (08:39→20:17)
[2023-04-30 15:25] LABS: Anion Gap 14 mmol/L (10-20); BUN (Urea Nitrogen) Less than 4 mg/dL (7.0-18.7); Calc. Creatinine Clearance 197 mL/min (70-130); Carbon Dioxide 19 mmol/L (22-29); Chloride 103 mmol/L (98-107); Estimated GFR 134; Glucose 138 mg/dL (70-105); Potassium 3.3 mmol/L (3.5-5.1); Sodium 133 mmol/L (136-145)
[2023-04-30] MEDS: Potassium Chloride 20 MEQ in Premix 1 BAG IVPB SCH ×2 (16:02→18:21)
[2023-04-30] MEDS ORDERED: Ondansetron ODT 4 MG TAB PO PRN (23:32)
[2023-05-01 04:33] LABS: Anion Gap 14 mmol/L (10-20); BUN (Urea Nitrogen) Less than 4 mg/dL (7.0-18.7); Calc. Creatinine Clearance 213 mL/min (70-130); Calcium 8.7 mg/dL (7.8-10.44); Carbon Dioxide 19 mmol/L (22-29); Chloride 104 mmol/L (98-107); Estimated GFR 137; Glucose 99 mg/dL (70-105); Potassium 3.5 mmol/L (3.5-5.1); Sodium 133 mmol/L (136-145)
[2023-05-01] MEDS ORDERED: Metoclopramide HCl 10 MG TAB PO SCH (07:30)
[2023-05-01] MEDS: guaiFENesin ER 600 MG TAB PO SCH (07:34)
[2023-05-01 07:59] VITALS: BP 111/68; TEMP 98
[2023-05-01] MEDS ORDERED: Famotidine 20 MG TAB PO SCH (09:00)
== END 2023-05-01 08:35 | disposition home or self-care (01) | DRG 832 ==
LOC: CSHERS 10:31 → CSHERHOLD 13:34 → CSHTELE 17:30 → OBSVTOIN 04-29 09:04
PROVIDERS: ADMIT Obstetrics & Gynecology; ATTEND Obstetrics & Gynecology
DX: O21.1 Hyperemesis gravidarum with metabolic disturbance (principal); O68 Labor and delivery complicated by abnormality of fetal acid-base balance; Z3A.12 12 weeks gestation of pregnancy
CPT/HCPCS: 36415; 76815; 80048; 80053; 81001; 83735; 85025; J1200; J2405; J2550; J2765; J3480; J7120; S0028

== ENCOUNTER 2023-10-29 05:16 | Inpatient (IN) | payer BC, OTHER ==
[2023-10-29 05:32] VITALS: BMI 35.2
[2023-10-29] MEDS ORDERED: fentaNYL 50 mcg/mL 1 mL Vial SLOW IVP PRN (06:09)
[2023-10-29] MEDS ORDERED: Ondansetron PF 4 MG/2 ML Vial IVP PRN ×2 (06:15→22:34)
[2023-10-29] MEDS ORDERED: Promethazine HCl 25 MG/ML VIAL IM PRN ×2 (06:15→22:34)
[2023-10-29] MEDS ORDERED: Misoprostol 200 MCG TAB RC PRN (06:15)
[2023-10-29] MEDS ORDERED: Methylergonovine 0.2 MG/ML VIAL IM PRN (06:15)
[2023-10-29] MEDS ORDERED: Acetaminophen 500 MG TAB PO PRN (06:15)
[2023-10-29] MEDS ORDERED: hydrALAZINE 20 MG/ML VIAL SLOW IVP PRN ×2 (06:15→22:34)
[2023-10-29] MEDS ORDERED: Carboprost 250 MCG/ML AMP IM PRN (06:15)
[2023-10-29] MEDS ORDERED: Lidocaine 1% (PF) 30 ML VIAL SC PRN (06:15)
[2023-10-29 06:26] LABS: Hematocrit 37.3 % (34.9-44.5); Hemoglobin 12.6 g/dL (12.0-15.5); Mean Corpuscular HGB CONC 33.8 g/dL (32.0-36.0); Mean Corpuscular Volume 79.9 fl (81.6-98.3); Platelet Count 265 10x3/uL (150-450); RBC Distribution Width 14.4 % (11.5-14.5); Red Blood Cell (RBC) Count 4.67 10x6/uL (3.90-5.03); White Blood Cell (WBC) Count 10.8 10x3/uL (3.5-10.5)
[2023-10-29] MEDS: fentaNYL/Ropivacaine Epidural 100 ML ONE (06:49)
[2023-10-29 06:58] LABS: HBsAg Index 0.21 S/CO (0-0.99); Hep B Surf Ag - L&D Non-Reactive S/CO (NonReactive)
[2023-10-29 07:00] LABS: Syphilis Antibody Nonreactive (Nonreactive); Syphilis Antibody Index 0.09 S/CO (<1.00 Non-Reactive)
[2023-10-29] MEDS ORDERED: Bupivacaine 0.25% HCL 30 ML VIAL ONE (08:00)
[2023-10-29] MEDS: Cephalexin 500 MG CAP PO SCH (08:11)
[2023-10-29] MEDS: Oxytocin 30 units/NS 500 ML 500 ML IVPB SCH (12:36)
[2023-10-29] MEDS: Lactated Ringer's 1,000 ML IV SCH (12:36)
[2023-10-29] MEDS: Ibuprofen 800 MG TAB PO PRN (18:05)
[2023-10-29] MEDS ORDERED: Milk Of Magnesia 30 ML UDCUP PO PRN (22:34)
[2023-10-29] MEDS ORDERED: Oxytocin 30 units/NS 500 ML 500 ML IV SCH (22:34)
[2023-10-29] MEDS ORDERED: Acetaminophen 325 MG TAB PO PRN (22:34)
[2023-10-29] MEDS ORDERED: Lanolin Ointment 7 GM TUBE TOP PRN (22:34)
[2023-10-29] MEDS ORDERED: diphenhydrAMINE 25 MG CAP PO PRN (22:34)
[2023-10-29] MEDS ORDERED: Bisacodyl 10 MG SUPP PR PRN (22:34)
[2023-10-29] MEDS ORDERED: Benzocaine-Menthol 82.5 ML CAN TOP PRN (22:34)
[2023-10-29] MEDS ORDERED: Preparation H Ointment 28 GM TUBE PR PRN (22:34)
[2023-10-29] MEDS: Docusate 100 MG CAP PO SCH (23:06)
[2023-10-30] MEDS: Cephalexin 500 MG CAP PO SCH (01:31)
[2023-10-30] MEDS ORDERED: Ibuprofen 800 MG TAB PO SCH (02:00)
[2023-10-30] MEDS: Ibuprofen 800 MG TAB PO SCH (04:15)
[2023-10-30] MEDS: Boostrix 0.5 ML (Tdap) VIAL (>/=7 yrs of age) IM ONE (07:41)
[2023-10-30] MEDS: Ferrous Sulfate 325 MG TAB PO SCH (07:41)
[2023-10-30] MEDS: Prenatal Vitamin 1 TAB PO SCH (08:21)
[2023-10-30] MEDS: Docusate 100 MG CAP PO SCH (08:21)
[2023-10-30 16:10] VITALS: BP 120/71; TEMP 98.4
== END 2023-10-30 20:15 | disposition home or self-care (01) | DRG 807 ==
LOC: CSHLD/OP 05:16 → CSHLD 05:42 → CSHPP 21:50
PROVIDERS: ADMIT Family Medicine; ATTEND Family Medicine
PROC: 10E0XZZ Delivery of Products of Conception, External Approach (ICD-10-PCS; principal; 2023-10-29)
PROC: 10907ZC Drainage of Amniotic Fluid, Therapeutic from Products of Conception, Via Natural or Artificial Opening (ICD-10-PCS; 2023-10-29)
DX: O99.214 Obesity complicating childbirth (principal); Z37.0 Single live birth; Z3A.39 39 weeks gestation of pregnancy; E66.9 Obesity, unspecified; O77.0 Labor and delivery complicated by meconium in amniotic fluid; O69.81X0 Labor and delivery complicated by cord around neck, without compression, not applicable or unspecified; O99.891 Other specified diseases and conditions complicating pregnancy; R31.9 Hematuria, unspecified
CPT/HCPCS: 36415; 51702; 81001; 85027; 86780; 86850; 86900; 86901; 87086; 87340; 99283; 99285; J0665; J2590; J7120